=== PATIENT | male | born 1985 | race African-American/Black ===

== ENCOUNTER 2022-07-03 11:42 | Emergency (ER) | payer SELFPAY ==
--- NOTE | ~2022-07-03 | XR_ITS ---
EXAMINATION: XR FINGER, RIGHT CLINICAL INFORMATION: Crush injury COMPARISON: None TECHNIQUE: Three views of the right thumb. FINDINGS: There is deformity of the fifth metacarpal which may reflect sequelae of remote prior fracture. No acute fracture seen. The thumb is intact. Joint spaces are maintained. No radiopaque foreign body. XR/XR finger RT min 2V IMPRESSION: No acute osseous abnormality. Deformity of the fifth metacarpal may reflect sequelae of remote healed prior fracture.
[2022-07-03 12:55] VITALS: BP 139/98; PULSE 69; RESP 14; TEMP 36.9; O2SAT 99; BMI 28.1
--- NOTE | 2022-07-03 17:46 | ED.EXTPRO ---
HPI - Extremity Problem General Chief complaint: Extremity Injury, Upper Stated complaint: R Thumb Injury 07/01/22 Time Seen by Provider: 07/03/22 17:36 Source: patient Mode of arrival: ambulatory Limitations: no limitations History of Present Illness HPI Narrative: 36 yo male presents to the ER for evaluation of right thumb injury that occurred 4 days ago. He states he accidentally slammed his right thumb into a car door. He was not seen at the time of the injury. He over the weekend he developed bruising and collection of blood under the right thumbnail with increased pain and pressure. He is able to flex and extend the thumb and has pain with flexion. No other injuries. No numbness or weakness. MD Complaint: extremity pain Onset (ago): day(s) (4) Pain Consistency: constant Location: right and other (Thumb) Severity scale (1-10): 7 Quality: aching and other (Throbbing) Radiation: none Relieving factors: nothing Exacerbating factors: range of motion and palpation Associated symptoms: denies other symptoms Related Data Allergies Allergy/AdvReac Type Severity Reaction Status Date / Time No Known Allergies Allergy Unverified 05/27/20 15:41 Review of Systems Review of Systems: Constitutional: No Fever, No Chills Cardiovascular: No Chest Pain, No SOB Gastrointestinal: No Nausea, No Vomiting Musculoskeletal: + joint pain, No Myalgias Skin: No Skin Lesions, No rash Neuro: No Weakness, No Numbness Psych: + Anxiety/Panic Heme/Lymph: +Bruising, No Lymphadenopathy PMFSH Social History Social History Advance Directives: No Advance Directives Information Provided: No Physical Exam Vital Signs: Vital Signs: Last Vital Signs Temp 98.4 F 07/03/22 12:55 Pulse 69 07/03/22 12:55 Resp 14 07/03/22 12:55 BP 139/98 H 07/03/22 12:55 Pulse Ox 99 07/03/22 12:55 O2 Del Method 07/03/22 12:55 BMI result Body Mass Index 28.1 Appearance: Alert. Oriented X3. No acute distress. HEENT: normal inspection CVS: Normal heart rate and rhythm. Pulses normal. Respiratory: No respiratory distress. Skin: Skin warm and dry. Normal skin color. Normal skin turgor. No rashes. Extremities: Right thumb with diffuse darkening under the entire nail bed consistent with a subungual hematoma. There is also petechiae of the distal pulp of the thumb. Normal flexion and extension of the digit with normal thumb to finger opposition. The nail is intact. Neuro: Oriented X 3. No motor deficit. No sensory deficit. Course Course Course Narrative: 36-year-old male presents to the ER for evaluation of a right thumb injury 4 days ago. His exam is consistent with a subungual hematoma. His x-rays negative for any acute fractures. He is agreeable to drainage today in the ER. See procedure note. He tolerated well. He was given tetanus shot an NSAID for pain control. He is stable for discharge home. Procedures Nail Trephination Time out: Yes Location (finger): right and thumb Sterile prep: betadine Method of drainage: needle Procedure successful: Yes Patient tolerated procedure: No Complications Critical Care Time Critical Care Time Critical Care Time: No Discharge Plan Discharge Clinical Impression: Subungual hematoma Patient Disposition: Home, Self-Care Instructions: Subungual Hematoma (ED) Additional Instructions: Your x-ray today did not show any broken bones. The blood was drained from her thumb. The pressure and pain should feel better. Continue to ice, elevate your hand and some as needed. Take Motrin & Tylenol as needed for pain. Follow-up with your PCP as needed Stand Alone Forms: Work/School Release Interventions: LWBS Worksheet Last Done: 07/03/22 14:55
[2022-07-03] MEDS: Diphth,Pertus(ACell),Tet Adult 0.5 ML SYRINGE IM (18:22)
[2022-07-03] MEDS: Ibuprofen 600 MG TABLET PO (18:23)
== END 2022-07-03 18:25 | disposition home or self-care (01) ==
PROVIDERS: Emergency Provider Emergency Medicine
DX: S60.111A Contusion of right thumb with damage to nail, initial encounter (principal); W23.1XXA Caught, crushed, jammed, or pinched between stationary objects, initial encounter; Y93.89 Activity, other specified; Y92.810 Car as the place of occurrence of the external cause; Y99.9 Unspecified external cause status
CPT/HCPCS: 11740; 73140; 90471; 90715; 99283; 99284

== ENCOUNTER 2023-05-30 05:52 | Emergency (ER) | payer BC, SELFPAY ==
--- NOTE | ~2023-05-30 | US_ITS ---
EXAMINATION: US SCROTUM CLINICAL INFORMATION: Right testicular pain. COMPARISON: None available. TECHNIQUE: A sonogram of the scrotum was performed assessing carey-scale appearance and color Doppler flow. Spectral Doppler analysis of the arterial and venous flow were performed in the testes bilaterally. FINDINGS: RIGHT: Right testicle measures 4.3 x 2.3 x 2.5 cm, volume 13 mL. No focal testicular parenchymal lesions are visualized. Spectral Doppler analysis of the arterial and venous flow is normal in the right testis. Right epididymal head is normal in size. No right hydrocele or varicocele is seen. Right epididymal Doppler flow is normal. LEFT: Left testicle measures 4.1 x 2.0 x 2.6 cm, volume 11 mL. No focal testicular parenchymal lesions are visualized. Spectral Doppler analysis of the arterial and venous flow is normal in the left testis. Left epididymal head is normal in size. No left hydrocele or varicocele is seen. Left epididymal Doppler flow is normal. US/US scrotum doppler IMPRESSION: Symmetrically sized testicles demonstrating normal arterial and venous waveforms.
--- NOTE | ~2023-05-30 | US_ITS ---
EXAMINATION: US SCROTUM CLINICAL INFORMATION: Right testicular pain. COMPARISON: None available. TECHNIQUE: A sonogram of the scrotum was performed assessing carey-scale appearance and color Doppler flow. Spectral Doppler analysis of the arterial and venous flow were performed in the testes bilaterally. FINDINGS: RIGHT: Right testicle measures 4.3 x 2.3 x 2.5 cm, volume 13 mL. No focal testicular parenchymal lesions are visualized. Spectral Doppler analysis of the arterial and venous flow is normal in the right testis. Right epididymal head is normal in size. No right hydrocele or varicocele is seen. Right epididymal Doppler flow is normal. LEFT: Left testicle measures 4.1 x 2.0 x 2.6 cm, volume 11 mL. No focal testicular parenchymal lesions are visualized. Spectral Doppler analysis of the arterial and venous flow is normal in the left testis. Left epididymal head is normal in size. No left hydrocele or varicocele is seen. Left epididymal Doppler flow is normal. US/US scrotum IMPRESSION: Symmetrically sized testicles demonstrating normal arterial and venous waveforms.
[2023-05-30 05:57] VITALS: BP 129/84; PULSE 80; RESP 17; TEMP 36.8; O2SAT 99; BMI 27.4
--- NOTE | 2023-05-30 07:18 | ED.BACK ---
HPI - Back Pain/Injury General Chief Complaint: Back Pain/Injury Stated Complaint: back inj Time Seen by Provider: 05/30/23 07:18 Source: patient and family Mode of arrival: ambulatory Limitations: no limitations History of Present Illness HPI Narrative: 37 yo male no blood thinners, no IVDA here with R low back pain after twisting at LISA - has pain in R low back down R leg with some parasthesias but no loss of control of bowel or bladder and no saddle anesthesia. He tried heat and NSAIDs without relief. Hurts to move and raise R leg. He states he cannot tolerate the pain anymore. It does radiate down the groin at times as well but no other or GI symptoms. MD elicited complaint: back pain and back injury Pertinent past history: prior back pain Onset (ago): day(s) (6) Timing: constant Severity: moderate Similar Symptoms Previously: No Quality: sharp Location: lumbar spine Radiation: right upper leg Exacerbating factors: movement Relieving factors: immobilization Context: turning/twisting Associated symptoms: numbness (has tingling to R upper lateral and anterior thigh) Treatments prior to arrival: heat therapy and NSAIDS Work related injury: No Related Data Previous Rx's Medication Instructions Recorded diazepam 5 mg tablet (Valium) 5 mg PO TID PRN muscle spasm #10 05/30/23 tabs lidocaine 5 % topical patch 1 patch topical DAILY #30 ea 05/30/23 prednisone 20 mg tablet 40 mg (2 x 20 mg) PO DAILY 5 days 05/30/23 #10 tabs Allergies Allergy/AdvReac Type Severity Reaction Status Date / Time No Known Allergies Allergy Unverified 05/27/20 15:41 Review of Systems Review of Systems: Constitutional : No Weight loss, No Fever, No Chills, ENT/Mouth : No Hearing loss, No Ear Pain, No Nasal Congestion, No Sinus Pain, No Hoarseness, No sore throat, No Rhinorrhea, No Swallowing Difficulty Cardiovascular : No Chest Pain, No SOB Respiratory : No Cough, No Dyspnea Gastrointestinal : No Nausea, No Vomiting, No Diarrhea, No abdominal Pain, No Hematochezia, No Melena Genitourinary : No Dysuria, No Urinary Frequency, No Hematuria, No Urinary Incontinence, Musculoskeletal : positive back pain Skin : No Skin Lesions, No rash Neuro : No Weakness, No Numbness, pos Paresthesias, no loss of bowel or bladder incontinence, no saddle anesthesia All other systems reviewed and are negative PMFSH Past Medical History Attestation statement: The following information was validated with the patient. Source: old records reviewed Medical History Back pain Social History Social History Patient Tobacco Use Status: Never used Tobacco Advance Directives: No Advance Directives Information Provided: No Physical Exam Vital Signs: Vital Signs: Last Vital Signs Temp 98.2 F 05/30/23 05:57 Pulse 80 05/30/23 05:57 Resp 17 05/30/23 05:57 BP 129/84 05/30/23 05:57 Pulse Ox 99 05/30/23 05:57 O2 Del Method Room Air 05/30/23 05:57 BMI result Body Mass Index 27.4 Appearance: Alert. Oriented X3. No acute distress. Eyes: Pupils equal, round and reactive to light. ENT: Pharynx normal. Neck: Normal inspection. Neck supple. CVS: Normal heart rate and rhythm. Pulses normal. Respiratory: No respiratory distress. Breath sounds normal. Abdomen: Soft and nontender. : slight ttp to R spermatic no bulgle possible small reducible R inguinal hernia Back: ttp along R lower lumbar paraspinal area Skin: Skin warm and dry. Normal skin color. Normal skin turgor. Extremities: No lower extremity edema. No calf ttp Neuro: Oriented X 3. No motor deficit. No sensory deficit. SILT inner thigh, L5 5/5 bilaterally, 2+ DTR in patella and gus, 2+ DP/PT pulses, + R leg raise at 15 degrees, L leg normal. Pos radicular pain down R leg, feels tingling on R upper and lateral thigh. Medications Administered Discontinued Medications Generic Name Dose Route Start Last Admin Trade Name Freq PRN Reason Stop Dose Admin Diazepam 5 mg 05/30/23 07:32 05/30/23 07:55 Diazepam 2 Mg Tablet PO 05/30/23 07:33 5 mg ONCE ONE Administration Lidocaine 1 patch 05/30/23 07:32 05/30/23 07:55 Lidocaine 4 % Patch Adh..Patch TRANSDERMA 05/30/23 07:33 1 patch ONCE ONE Administration Protocol Morphine Sulfate 15 mg 05/30/23 07:32 05/30/23 07:55 Morphine Sulfate Immed Release 15 Mg Tablet PO 05/30/23 07:33 15 mg ONCE ONE Administration Medical Decision Making Medical Decision Making MDM Narrative: 37 yo male with prior low back pain but no hx of herniation presents with R low back pain and radicular symptoms down R leg - no b/b incontinence saddle anesthesia no red flags no IVDA or fevers pain is reproduceable he does have small reduceable inguinal hernia on R side which is not bulging and has no GI symptoms likely incidental I am going to obtain scrotal US just in case - PO pain medications. If normal US will DC home as disc hernation and 2 weeks or restrictions PCP and PT. Possible MRI for emergent symptoms - precautions advised. Differential Diagnosis Differential Diagnoses: The differential diagnosis associated with the presentation includes muscle spasm, hernia, lumbar strain, lumbar disc herniation Admission/Observation Consideration of admission/observation: Escalation of care including admission/observation considered can ambulate and tolerate oral pain medications no signs of CE syndrome Independent Interpretation I performed an independent interpretation of an: Ultrasound (no torsion) Radiology Impression Discussion of test interpretation with radiology: I have reviewed the radiologist's reading. Independent Historian Clinical information obtained from an independent historian. History obtained from or confirmed by: Spouse External Record Review External record reviewed: Inpatient record Tests considered The following testing was considered but not selected: MRI but given no cauda equina symptoms no indication at this time Prescription Management I considered prescription management with: Pain Medication and Other Discharge Plan Discharge Clinical Impression: Lumbar radiculopathy Patient Disposition: Home, Self-Care Instructions: Lumbar Radiculopathy (ED), Lower Back Exercises (ED) Additional Instructions: return for inability to urinate or loss of control of bowel or bladder, numbness in genital area this is an emergency. take a stool softener over the counter for pain. you can take over the counter tylenol while on prednisone but avoid motrin and ibuprofen while on the prednisone to prevent stomach upset - you can take the motrin once off prednisone. walk around and do not just sit in bed. you need to call your doctor and get into physical therapy as soon as possible. small possible inguinal hernia on right side but not the cause of your pain Prescriptions: New prednisone 20 mg tablet 40 mg PO DAILY 5 Days Qty: 10 0RF lidocaine 5 % adhesive patch,medicated 1 patch topical DAILY Qty: 30 0RF Rx Instructions: leave on most painful area for up to 12 hrs diazepam [Valium] 5 mg tablet 5 mg PO TID PRN (Reason: muscle spasm) Qty: 10 0RF Rx Instructions: partial fill is okay Stand Alone Forms: Work/School Release
[2023-05-30] MEDS: Lidocaine 4 % Patch ADH..PATCH 1 PATCH TRANSDERMA (07:55)
[2023-05-30] MEDS: Morphine Sulfate Immed Release 15 MG TABLET PO (07:55)
[2023-05-30] MEDS: diazePAM 2 MG TABLET 5 MG PO (07:55)
--- NOTE | 2023-05-30 07:58 | PC.NURSE ---
PATIENT EVALUATED BY PROVIDER. MEDICATIONS/ULTRASOUND ORDERED. PT MEDICATED ORDERED PESTICIDE CONTROL INSPECTOR CURRENTLY AT BEDSIDE FOR ULTRASOUND. PT AWARE AND AGREEABLE TO CARE PLAN
== END 2023-05-30 09:02 | disposition home or self-care (01) ==
PROVIDERS: Emergency Provider Emergency Medicine
DX: M54.16 Radiculopathy, lumbar region (principal); R10.2 Pelvic and perineal pain; N50.812 Left testicular pain; N50.811 Right testicular pain; Z79.899 Other long term (current) drug therapy
CPT/HCPCS: 76870; 93975; 99284

== ENCOUNTER 2023-06-24 01:25 | Emergency (ER) | payer BC, SELFPAY ==
[2023-06-24 01:45] VITALS: BP 124/68; PULSE 69; RESP 19; TEMP 37.7; O2SAT 97; BMI 28.1
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
[2023-06-24] MEDS: Cyclobenzaprine HCl 5 MG TABLET PO (02:44)
[2023-06-24] MEDS: Ketorolac Tromethamine 15 MG/ML VIAL IM (02:44)
[2023-06-24] MEDS: predniSONE 20 MG TABLET PO (02:44)
[2023-06-24 02:51] VITALS: BP 131/87; PULSE 69; RESP 18; O2SAT 97
== END 2023-06-24 02:53 | disposition home or self-care (01) ==
PROVIDERS: Emergency Provider Emergency Medicine Emergency Medical Services
DX: S39.012A Strain of muscle, fascia and tendon of lower back, initial encounter (principal); X58.XXXA Exposure to other specified factors, initial encounter; Y93.9 Activity, unspecified; Y92.9 Unspecified place or not applicable; Y99.9 Unspecified external cause status
CPT/HCPCS: 96372; 99283; 99284; J1885

== ENCOUNTER 2023-06-29 08:38 | Emergency (ER) | payer BC, SELFPAY ==
--- NOTE | ~2023-06-29 | MR_ITS ---
EXAMINATION: MR LUMBAR SPINE WITHOUT CONTRAST CLINICAL INFORMATION: Severe low back pain and urinary incontinence. COMPARISON: There are no prior studies available for comparison. TECHNIQUE: MRI of the lumbar spine was obtained using routine sequences without contrast. FINDINGS: VERTEBRAL BODIES AND PARASPINAL STRUCTURES: There is nonspecific straightening of the lumbar lordosis. There is mild narrowing of intervertebral disc height at L4-L5 with mild disc desiccation. Vertebral body heights are maintained, and no fractures are demonstrated. Marrow signal is homogenous. There are arthropathic changes of the sacroiliac joints. The visualized retroperitoneal and pelvic structures are unremarkable. CONUS MEDULLARIS AND CAUDA EQUINA: Normal, terminating at the level of T12-L1. The lower thoracic spinal cord appears normal. The cauda equina nerve roots and filum terminale appear normal. SPINAL LEVELS: T12-L1: The facet joints appear normal bilaterally. Disc contour is normal. There is no central stenosis or foraminal narrowing. L1-L2: The facet joints appear normal bilaterally. Disc contour is normal. There is no central stenosis or foraminal narrowing. L2-L3: The facet joints appear normal bilaterally. Disc contour is normal. There is no central stenosis or foraminal narrowing. L3-L4: There is mild bilateral facet arthropathy. The small right paracentral disc protrusion which distorts the ventral thecal sac and there is no significant mass effect or central stenosis. There is a right foraminal disc protrusion with an annular fissure impinging on the exiting right L3 nerve root. L4-L5: There is mild bilateral facet arthropathy. There is a mild diffuse disc bulge without mass effect on the thecal sac and there is no central stenosis. There is a left foraminal disc protrusion with an annular fissure impinging on the exiting left L4 nerve root. L5-S1: There is mild bilateral facet arthropathy. Disc contour is normal. There is no central stenosis or foraminal narrowing. MR/MR lumbar spine wo con IMPRESSION: 1. At L3-L4 there is a small right paracentral disc protrusion without mass effect or central stenosis. There is a right foraminal disc protrusion with an annular fissure impinging on the exiting right L3 nerve root. 2. At L4-L5 there is a mild diffuse disc bulge without mass effect on the thecal sac and there is no central stenosis. There is a left foraminal disc protrusion with an annular fissure impinging on the exiting left L4 nerve root.
[2023-06-29 08:57] VITALS: BP 142/106; RESP 19; TEMP 36.5; O2SAT 98; BMI 29.2
--- NOTE | 2023-06-29 09:35 | ED_ITS ---
HPI - Back Pain/Injury General Chief Complaint: Back Pain/Injury Stated Complaint: no feeling in r leg back pain l leg numbness Time Seen by Provider: 06/29/23 09:32 Source: patient Mode of arrival: ambulatory Limitations: no limitations History of Present Illness HPI Narrative: 37 yo male presenting for the 3rd time since 05/30/23 for evaluation of right lower back pain. He states initial injury was in May when he twisted wrong at the [employer]. He was seen here 05/30, diagnosed with lumbar strain and discharged with prednisone, valium and lidocaine patches. He states the pain slowly got better. He came back on 06/24 after re-injuring his back on the tea cup ride at [employer]. He was given additional prednisone, flexeril and naproxen with minimal relief. He states for the last 3 days he developed urinary incontinence. He states he goes the bathroom, feels like he emptied his bladder and then ends up urinating in himself when he is walking away from the bathroom. This happened several times. He also developed worsening numbness and tingling in the posterior and anterior thigh, along with the right inguinal area. No bowel incontinence but he is having a hard time sitting to have a BM. He is able to walk but has to do so very slowly. MD elicited complaint: back pain and back injury Pertinent past history: prior back pain and recent trauma Onset (ago): week(s) Timing: constant and progressively worsening Severity: severe Similar Symptoms Previously: Yes Quality: sharp, stabbing and tingling Location: right lower back Radiation: groin, buttocks, right upper leg and right leg below the knee Exacerbating factors: movement, sitting upright and walking Relieving factors: other (laying prone) Context: turning/twisting Associated symptoms: difficulty walking, loss of sensation in lower extremities and urinary incontinence Treatments prior to arrival: NSAIDS and other medications Work related injury: No Related Data Previous Rx's Medication Instructions Recorded diazepam 5 mg tablet (Valium) 5 mg PO TID PRN muscle spasm #10 05/30/23 tabs lidocaine 5 % topical patch 1 patch topical DAILY #30 ea 05/30/23 prednisone 20 mg tablet 40 mg (2 x 20 mg) PO DAILY 5 days 05/30/23 #10 tabs cyclobenzaprine 5 mg tablet 5 mg PO TID PRN muscle spasm 7 06/24/23 days #21 tabs naproxen 500 mg tablet 500 mg PO BID 7 days #14 tabs 06/24/23 prednisone 20 mg tablet 20 mg PO DAILY 7 days #7 tabs 06/24/23 oxycodone 10 mg tablet 10 mg PO Q6H PRN severe pain 06/29/23 (scale score 7-10) #12 tabs Allergies Allergy/AdvReac Type Severity Reaction Status Date / Time No Known Allergies Allergy Verified 06/29/23 08:57 Review of Systems Review of Systems: Yes all other systems are reviewed and are negative [facility] Past Medical History Medical History Back pain Social History Social History Patient Tobacco Use Status: Never used Tobacco Smoked in Last 30 Days: No Use of substances other than those prescribed or required for medical reasons: Yes Substance Use Type: Marijuana Advance Directives: No Advance Directives Information Provided: Yes Physical Exam Vital Signs: Vital Signs: Last Vital Signs Temp 98.5 F 06/29/23 12:58 Pulse 74 06/29/23 12:58 Resp 18 06/29/23 12:58 BP 122/76 06/29/23 12:58 Pulse Ox 97 06/29/23 12:58 O2 Del Method Room Air 06/29/23 12:58 BMI result Body Mass Index 29.2 Appearance: Alert. Oriented X3. No acute distress. Head: normocephalic, atraumatic. Eyes: Pupils equal, round and reactive to light. ENT: Pharynx normal. No tonsillar swelling or exudate. Neck: Normal inspection. Neck supple. CVS: Normal heart rate and rhythm. Pulses normal. Respiratory: No respiratory distress. Breath sounds normal. Back: normal inspection, right lower lumbar and SI joint tenderness. Skin: Skin warm and dry. Normal skin color. Normal skin turgor. No rashes. Extremities: No lower extremity edema. No joint swelling. Neuro/psych: Oriented X 3. +sensory deficit of posterior thigh and calf. normal ROM. Ambulated into treatment room slowly. Medications Administered Discontinued Medications Generic Name Dose Route Start Last Admin Trade Name Freq PRN Reason Stop Dose Admin Oxycodone HCl 10 mg 06/29/23 09:41 06/29/23 09:46 Oxycodone Hcl Immed Release 5 Mg Tablet PO 06/29/23 09:42 10 mg ONCE ONE Administration Oxycodone HCl 10 mg 06/29/23 12:54 06/29/23 12:59 Oxycodone Hcl Immed Release 5 Mg Tablet PO 06/29/23 12:55 10 mg ONCE ONE Administration Medical Decision Making Medical Decision Making MDM Narrative: 37 yo male with recent lumbar strain and radiculopathy presenting with new urinary incontinence x3 days. difficult to examine given pain. he is most comfortable prone. he is ambulatory given symptoms, case d/w Dr. Casas - recommended MRI 2 doses of oxycodone given to tolerate MRI MRI showing mild disc protrusion and L4 nerve root compression. no central canal stenosis pain improved after meds we discussed results and possible admission for pain control. he decline and would like to go home. will refer to member service specialist here, he needs PCP. return precautions discussed. stable for d/c home Differential Diagnosis Differential Diagnoses: The differential diagnosis associated with the presentation includes cauda equina syndrome, lumbar radiculopathy, malignancy, trauma, osteoporosis, nerve root compression, plexopathy, degenerative disc disease, disc herniation, spinal stenosis, sacroiliac joint dysfunction, facet joint injury, and less likely infection?like abscess or diskitis Admission/Observation Consideration of admission/observation: Escalation of care including admission/observation considered required multiple pain meds - decined admit Independent Interpretation Interpretation: MRI reviewed - no central canal stenosis appreciated, agree w/ radiology read Radiology Impression Discussion of test interpretation with radiology: I have reviewed the radiologist's reading. Radiologist Impression: MR/MR lumbar spine wo con IMPRESSION: 1. At L3-L4 there is a small right paracentral disc protrusion without mass effect or central stenosis. There is a right foraminal disc protrusion with an annular fissure impinging on the exiting right L3 nerve root. 2. At L4-L5 there is a mild diffuse disc bulge without mass effect on the thecal sac and there is no central stenosis. There is a left foraminal disc protrusion with an annular fissure impinging on the exiting left L4 nerve root. Independent Historian Clinical information obtained from an independent historian. History obtained from or confirmed by: Spouse External Record Review External record reviewed: Outpatient record, Prior outpatient labs and Prior outpatient radiology Prescription Management I considered prescription management with: Pain Medication Critical Care Time Critical Care Time Critical Care Time: Yes Total Critical Care Time: 31 Attestation: I have personally provided critical care time exclusive of time spent on separately billable procedures. Time includes review of radiology results, frequent bedside assessments of pain and cardiopulmonary status requiring multiple doses of narcotic medications for pain control, and monitoring for potential decompensation. Intervention performed as documented. Discharge Plan Discharge Clinical Impression: Lumbar radiculopathy, Lumbar disc herniation Patient Disposition: Home, Self-Care Instructions: Lumbar Disc Herniation (ED), Lumbar Radiculopathy (ED) Additional Instructions: Take the prescribed narcotic pain medication as needed for severe pain only. Do not drive after taking this medication Finish your prednisone as previously prescribed Recommend Tylenol 975 mv every 6 hours around the clock Recommend Aleve 500 mg every 12 hours, take with food Follow up with the [facility] Call your insurance company and see who is accepting new patients. If you develop new or worsening symptoms call 911 or come back to the ER for further evaluation. MR/MR lumbar spine wo con IMPRESSION: 1. At L3-L4 there is a small right paracentral disc protrusion without mass effect or central stenosis. There is a right foraminal disc protrusion with an annular fissure impinging on the exiting right L3 nerve root. 2. At L4-L5 there is a mild diffuse disc bulge without mass effect on the thecal sac and there is no central stenosis. There is a left foraminal disc protrusion with an annular fissure impinging on the exiting left L4 nerve root. Prescriptions: New oxycodone 10 mg tablet 10 mg PO Q6H PRN (Reason: severe pain (scale score 7-10)) Qty: 12 0RF Rx Instructions: Partial Fill upon patient request. No Action prednisone 20 mg tablet 40 mg PO DAILY 5 Days Qty: 10 0RF lidocaine 5 % adhesive patch,medicated 1 patch topical DAILY Qty: 30 0RF Rx Instructions: leave on most painful area for up to 12 hrs diazepam [Valium] 5 mg tablet 5 mg PO TID PRN (Reason: muscle spasm) Qty: 10 0RF Rx Instructions: partial fill is okay prednisone 20 mg tablet 20 mg PO DAILY 7 Days Qty: 7 0RF naproxen 500 mg tablet 500 mg PO BID 7 Days Qty: 14 0RF cyclobenzaprine 5 mg tablet 5 mg PO TID PRN (Reason: muscle spasm) 7 Days Qty: 21 0RF Referrals: [facility] [Provider Group] [facility]] [facility] [Provider Group] Wilman King MD, PhD [Physician] - Stand Alone Forms: Work/School Release
[2023-06-29] MEDS: oxyCODONE HCl Immed Release 5 MG TABLET 10 MG PO ×2 (09:46→12:59)
--- NOTE | 2023-06-29 09:50 | PC.NURSE ---
a&ox3, vss and up to date at this time. pt comes in today d/t 9/10 lower back pain that started last week. pt states that he was at [employer] w/ his daughter when he was on a ride and twisted/turned funny. pain has been present ever since. pt also c/o right leg numbness/tingling sensation at this time. pt medicated per provider order. will reassess pain level shortly. pt laying flat on abdomen to promote comfort at this tie. respirations even and unlabored. partner bedside for support. call grace placed within reach.
--- NOTE | 2023-06-29 11:00 | PC.NURSE ---
MRI screening form filled out at this time. faxed over. placed in pt's chart.
--- NOTE | 2023-06-29 11:40 | PC.NURSE ---
pt currently off unit. MRI came to transfer pt to have imaging done at this time. will reassess when pt returns.
--- NOTE | 2023-06-29 12:45 | PC.NURSE ---
pt returned from MRI screening. pt requesting another dose of pain medication at this time. will notify provider.
[2023-06-29 12:58] VITALS: BP 122/76; PULSE 74; RESP 18; TEMP 36.9; O2SAT 97
--- NOTE | 2023-06-29 13:04 | PC.NURSE ---
medication administered per provider order. will reassess pain level shortly. pt repositioned to comfort. partner bedside for support. call grace placed within reach.
== END 2023-06-29 13:53 | disposition home or self-care (01) ==
PROVIDERS: Emergency Provider Emergency Medicine
DX: M51.16 Intervertebral disc disorders with radiculopathy, lumbar region (principal); R32 Unspecified urinary incontinence
CPT/HCPCS: 72148; 99284; 99285

== ENCOUNTER 2023-07-11 10:57 | Outpatient (AMB) | payer BC, SELFPAY ==
--- NOTE | 2023-07-11 11:28 | A.SPINEOV_ITS ---
Intake Intake Visit Reasons: ED follow up Intake Note: Mr. Avery is here today c/o Right-sided low back pain radiating into thigh. MRI done @ [facility] [place] [facility] Required: No Allergies No Known Allergies Allergy (Verified 06/29/23 08:57) Assessment & Plan Assessment & Plan (1) Alterations of sensations: Comment: Of right thigh and groin Code(s): R20.9 - Unspecified disturbances of skin sensation (2) Lumbago: Code(s): M54.50 - Low back pain, unspecified Plan Dear colleague, Thank you for referring Jose M to our office today. Jose M is a pleasant 37-year-old male comes in today with a chief complaint of 2 months of low back pain with radiation into his right thigh. He reports that his initial injury occurred after he went to the [employer] and was turning/reaching to grab money. He felt a sharp pain in his low back which persisted for 3-4 weeks. He was seen in the ED, provided with pain medication and muscle relaxers, and states that this began to improve. Then 4 weeks ago he was on the tea cup ride at [employer] and as the ride jerked his body he felt another short pain begin his low back with radiation into his right thigh. After dealing with this for a couple of weeks he began to report significant sensation changes including severe pain to even light touch of his right thigh/groin. He also reports urinary incontinence and an inability to fully void. After being seen in the emergency department 2 weeks ago he was referred to our office for evaluation. He has tried stretching, exercise, Tylenol, naproxen, ice, heat, rest all without alleviation of symptoms. No progression of sensation changes or incontinence since onset. PMH: None reported. Social hx: Patient smokes 1/2 ppd. Reports no substance use. Medications: cyclobenzaprine, Valium, oxycodone, prednisone, naproxen. Allergies: NKDA. Physical exam: Bennie has 5/5 strength in his upper and lower extremities. Reported decreased sensation over proximal right anterior/lateral thigh. Sensation grossly intact elsewhere. Patient is able to ambulate well without difficulty. He can rise from a seated position easily. (-) Bilateral straight leg raise, (-) Arndt's, (-) clonus. Imaging review: MRI completed at [facility] shows no significant neurological impingement, no significant stenosis, no significant disc bulge, central canal is patent and open. Impression: Bennie is a 37-year-old male who comes in today after 2 months of back pain with newer onset radiation into his right thigh roughly 4 weeks ago secondary to riding the teacup ride at [employer]. Of note he complains of inability to completely void, and some urinary incontinence. Also complains of significant sensation changes of R thigh. His MRI does not show evidence of any neurological complications that would warrant surgery. I recommend that he be referred for physical therapy, and be referred to Pain Management for further evaluation and potential workup / treatment. We will also place a referral for Neurology. He has no saddle anesthesia and no fecal incontinence / progression of symptoms. Given his MRI results is a very low risk for progressive neurological deficits. Dr. King also reviewed the MRI films and is in agreement with this plan. Thank you for allowing us to care for your patient. The total time spent with this visit with this patient was 45 minutes reviewing history, physical exam, MRI imaging review, referral placement, and implementation of treatment plan or further diagnostic testing Nas King MD,PhD [facility] Orders: Referrals Neurology Referral R20.9 - Unspecified disturbances of skin sensation Pain Management Referral M54.50 - Low back pain, unspecified Coding Level of Care Code New Pt Level 4 (91298) Diagnoses Alterations of sensations R20.9 Lumbago M54.50
== END 2023-07-11 12:54 | disposition home or self-care (01) ==
PROVIDERS: Visit Provider Physician Assistant
DX: R20.9 Unspecified disturbances of skin sensation (principal); M54.50 Low back pain, unspecified
CPT/HCPCS: 99204

== ENCOUNTER → 2023-07-11 10:57 | Outpatient (BNVA) | payer BC, SELFPAY | PROVIDERS: Visit Provider Physician Assistant ==

== ENCOUNTER 2023-07-18 08:58 | Outpatient (AMB) | payer BC, SELFPAY ==
--- NOTE | 2023-07-18 09:08 | MHC.OFFVIS ---
Intake Vital Signs 07/18/23 09:11 Height 5 ft 8 in Weight 186 lb BMI 28.3 BP 134/82 Blood Pressure Location Lt brachial Position Sitting Respiration 16 Pulse 76 Pulse Source Pulse Oximeter Pulse Oximetry (%) 100 Oxygen Delivery Method Room Air Intake Visit Reasons: Persistent R sided low back pain / thigh pain Allergies No Known Allergies Allergy (Verified 07/18/23 09:05) HPI HPI Comments History of Present Illness Details Jose M is a very pleasant 37 year old male who presents to the office today for evaluation and management of his subacute right lower back pain and right thigh pain. Patient reports that 2 months ago he injured his lower back while twisting, the injury was improving until 1 month ago when he went on a ride at [employer] and reinjured. He endorses right lower back pain that radiates into the right thigh. Pain in the right thigh is the most bothersome, he describes this as burning, tearing pain. Right thigh is sensative to touch, he states at night he has to sleep with his leg out of the covers because he is not able to tolerate even light touch. Patient was evaluated by Neurosurgery at and referred here for treatment. Patient reports that after the injury he was experiencing some incomplete emptying of the bladder followed by urinary incontinence. He states that this is no longer an issue and has not happened in a couple weeks. He denies red flag symptoms including new loss of bowel, bladder or saddle anesthesia. Patient has been taking anti-inflammatory medication and muscle relaxers for the pain. He states the Advil helps his pain. He is no longer taking muscle relaxers but they did provide him benefit of sleep though they did not help with the burning pain to his thigh. Patient states he is on a waiting list for physical therapy. He has never tried injections for his back. MRI reviewed with patient today, results as per below. In terms of muscle damage condition is described as burning, numb, stabbing, pins and needles. Pain is negatively impacting patient's sleep, daily activities, normal function, mood and work. FORMERLY [facility], [facility] Medical History (Updated 07/18/23 @ 12:48 by Ayana Brantley APRN, PACKING LINE OPERATOR) Back pain Social History Patient Tobacco Use Status: Never used Tobacco Substance Use Type: Marijuana Review of Systems Const All systems reviewed & are unremarkable except as noted in HPI and below Physical Exam Vital Signs: Last Vital Signs Pulse 76 07/18/23 09:11 Resp 16 07/18/23 09:11 BP 134/82 07/18/23 09:11 Pulse Ox 100 07/18/23 09:11 Oxygen Delivery Method Room Air 07/18/23 09:11 BMI result Body Mass Index 28.3 General: awake, alert, oriented. Answers questions appropriately. Fully engaged in examination. Skin: warm, dry, intact HEENT: Normocephalic. Hearing intact. Cardiac: External chest normal in appearance. Respiratory: No cough, audible wheezing or stridor. Abdomen: without gross distension. MS: No obvious swelling or deformities. Able to stand on bilateral tiptoes and bilateral heels.? Able to transition from sit to stand unassisted. Ambulates with bilaterally normal heel strike and toe off Bilateral lower extremity strength 5/5 SLR with and without dorsiflexion positive on the right flexion to 70 degrees, extension to 10 degrees. Pain worse with extension tenderness to palpation right thigh, midline lumbar vertebrae and lumbar paraspinal muscles Neurological: Oriented to person, place, time and situation. Thought process intact. No gait abnormalities appreciated. Psychiatric: Appropriate mood and affect. Good judgment and insight. Results Reviewed Results Reviewed: 06/29/23 MR/MR lumbar spine wo con MRI of the lumbar spine was obtained using routine sequences without contrast. FINDINGS: VERTEBRAL BODIES AND PARASPINAL STRUCTURES: There is nonspecific straightening of the lumbar lordosis. There is mild narrowing of intervertebral disc height at L4-L5 with mild disc desiccation. Vertebral body heights are maintained, and no fractures are demonstrated. Marrow signal is homogenous. There are arthropathic changes of the sacroiliac joints. The visualized retroperitoneal and pelvic structures are unremarkable. CONUS MEDULLARIS AND CAUDA EQUINA: Normal, terminating at the level of T12-L1. The lower thoracic spinal cord appears normal. The cauda equina nerve roots and filum terminale appear normal. SPINAL LEVELS: T12-L1: The facet joints appear normal bilaterally. Disc contour is normal. There is no central stenosis or foraminal narrowing. L1-L2: The facet joints appear normal bilaterally. Disc contour is normal. There is no central stenosis or foraminal narrowing. L2-L3: The facet joints appear normal bilaterally. Disc contour is normal. There is no central stenosis or foraminal narrowing. L3-L4: There is mild bilateral facet arthropathy. The small right paracentral disc protrusion which distorts the ventral thecal sac and there is no significant mass effect or central stenosis. There is a right foraminal disc protrusion with an annular fissure impinging on the exiting right L3 nerve root. L4-L5: There is mild bilateral facet arthropathy. There is a mild diffuse disc bulge without mass effect on the thecal sac and there is no central stenosis. There is a left foraminal disc protrusion with an annular fissure impinging on the exiting left L4 nerve root. L5-S1: There is mild bilateral facet arthropathy. Disc contour is normal. There is no central stenosis or foraminal narrowing. IMPRESSION: 1. At L3-L4 there is a small right paracentral disc protrusion without mass effect or central stenosis. There is a right foraminal disc protrusion with an annular fissure impinging on the exiting right L3 nerve root. 2. At L4-L5 there is a mild diffuse disc bulge without mass effect on the thecal sac and there is no central stenosis. There is a left foraminal disc protrusion with an annular fissure impinging on the exiting left L4 nerve root. Assessment & Plan Assessment & Plan (1) Alterations of sensations: Comment: Of right thigh and groin Code(s): R20.9 - Unspecified disturbances of skin sensation (2) Neuritis: Code(s): M79.2 - Neuralgia and neuritis, unspecified Plan Jose M is a very pleasant 37-year-old male who presented to the office today for evaluation and management of his right lower back and right thigh pain. Patient recently evaluated by Neurosurgery, deemed nonsurgical and referred here for evaluation /management. History, physical exam and provocative testing consistent with lumbar radiculopathy and painful paresthesia of the right thigh, subacute. order placed for PT eval and treat given patient's reported burning pain consistent with neuritis, will trial gabapentin 100 mg t.i.d. Discussed options for treatment including diagnostic interventional testing, epidural steroid injections, peripheral nerve stimulation with Sprint, RFA and more permanent neuromodulation. If patient does not find relief with Motrin, gabapentin and physical therapy will plan for L3-4 transforaminal epidural steroid injection, fluoroscopy guided, with local anesthetic. all questions and concerns were answered during the visit, patient agrees to the plan. Follow-up in the office after 6-8 sessions of physical therapy. Medications: New ibuprofen 600 mg PO TID 60 tabs 0RF gabapentin 100 mg PO TID 14 days 42 caps 0RF Coding Level of Care Code New Pt Level 4 (95598) Diagnoses Alterations of sensations R20.9 Neuritis M79.2
[2023-07-18 09:11] VITALS: BP 134/82; PULSE 76; RESP 16; O2SAT 100; BMI 28.3
== END 2023-07-18 09:50 | disposition home or self-care (01) ==
PROVIDERS: Visit Provider Registered Nurse Emergency
DX: R20.9 Unspecified disturbances of skin sensation (principal); M79.2 Neuralgia and neuritis, unspecified
CPT/HCPCS: 99204; 99214

== ENCOUNTER → 2023-07-18 08:58 | Outpatient (BNVA) | payer BC, SELFPAY | PROVIDERS: Visit Provider Registered Nurse Emergency ==

== ENCOUNTER 2023-08-31 10:00 | Outpatient (RCR) | payer BC, SELFPAY ==
--- NOTE | 2023-08-24 16:06 | MHC.PT.EP ---
[facility] [place] Office [place] Office [place] Office [address] [phone] F: [phone] F: [phone] F: [phone] F: [phone] Physical Therapy Plan of Care Date of Evaluation: 08/24/23 Date of Surgery: NA Diagnosis: LBP, NEURALGIA. R LBP WITH RADIATION R THIGH. TWISTING INJURY 2 MONTHS AGO WITH REPEAT INJURY 1 MONTH AGO P Assessment: Pt IS 37 YO M REFERRED TO PT FROM [facility] NP WITH LBP/R LE PARESTHESIA FROM TWISTING AT [employer] [address] THROUGH THEN 1 WEEK LATER ON TEACUPS AT [employer]. PRESENTS TODAY WITH LESS BACK PAIN OVERALL BUT CONTINUED R THIGH SXS (SUPERFICIAL NERVE ENDING HYPERSENSITIVITY). GOOD OVERALL TRUNK FLEXIBILITY AND CORE STRENGTH. SHOULD BENEFIT FROM PT 1X/WK FOR WILVER EXTENSION PROGRAM, REV OF BODY MECH AND CORE WORK Frequency and Duration: The patient will be seen 1X/WK X 4 WKS Short Term Goals: 1. INCREASED AWARENESS OF POSTURE AND BACK CARE 2. LESS FREQUENCY OF R THIGH SXS 3. Pt TO PERF 2-3 TASKS WITH PROPER BODY MECH Family Assistant Goals: 1. I HEP WITH DC EX PLAN Treatment Plan: Modalities to reduce pain, spasms and effusion. Manual therapy to restore motion and function. Therapeutic exercise to improve strength and flexibility. Neuromuscular re-education for posture and balance. Therapeutic activities to return to functional activities of daily living. Electronically signed by: PK HILLMAN PT Please sign and return to therapist. Thank you for your referral.
== END 2023-09-07 09:26 | disposition home or self-care (01) ==
LOC: HO.PT 10:00
PROVIDERS: Visit Provider Registered Nurse Emergency
DX: M54.50 Low back pain, unspecified (principal)
CPT/HCPCS: 97110; 97161

== ENCOUNTER 2023-09-06 09:29 | Outpatient (AMB) | payer BC, SELFPAY ==
--- NOTE | 2023-09-06 09:42 | A.OFFVIS_ITS ---
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 Pt reports right thigh tingling sensation, it started after back injury. He had two back injuries in May and June. He states the initial back injury was in May when he twisted wrong at the [employer]. He was diagnosed with lumbar strain and discharged with prednisone, valium and lidocaine patches. He had the second back injury on 06/24, on the tea cup ride at [employer]. He was given additional prednisone, flexeril and naproxen with minimal relief. He saw spine clinic, and pain management. Back does not feel hurts anymore, just in the middle tight and tingling sensation. Pt had constant tingling with some burning pain. He could not wear pants or use blanket on his right thigh at that time. Since Thanksgiving the symptoms has been improved, still has constant tingling but not intense now. He tried gabapentin, it helped when he had severe pain, but not really for the constant tingling. FORMERLY [facility] Medical History (Updated 09/06/23 @ 18:56 by Filomena Paulson CNP) Back pain Social History Patient Tobacco Use Status: Never used Tobacco Substance Use Type: Marijuana Review of Systems Const All systems reviewed & are unremarkable except as noted in HPI and below Physical Exam Vital Signs: Last Vital Signs Pulse 85 09/06/23 09:43 BP 148/110 H 09/06/23 09:43 Pulse Ox 98 09/06/23 09:43 Oxygen Delivery Method Room Air 09/06/23 09:43 BMI result Body Mass Index 29.4 Const General: cooperative and healthy appearing Nutritional Appearance: well nourished Orientation/consciousness: patient oriented x3 Neck Neck: Yes full ROM and Yes supple Resp Effort & Inspection: normal respiratory effort and able to speak in complete sentences Neuro General: patient oriented x3, gait normal and moves all extremities Cranial nerves: Yes CN's II-XII intact bilaterally Cognition (Neuro): normal cognition Gait exam (Neuro): Normal gait present Motor exam (neuro): 5/5 motor strength present throughout, Pronator motor function not present and no tremor noted Psych Appearance: grossly normal Mental Status: mental status grossly normal Speech and movement: Normal speech and movement present Affect: normal affect Attitude: cooperative Assessment & Plan Assessment & Plan (1) Meralgia paresthetica of right side: Code(s): G57.11 - Meralgia paresthetica, right lower limb Plan Advised patient to wearing loose pants. Continue to use gabapentin 100 mg as needed. May try Nirvive supplement. Will consider EMG if the tingling feeling is not improved. Coding Level of Care Code New Pt Level 3 (77576) Diagnoses Meralgia paresthetica of right side G57.11
[2023-09-06 09:43] VITALS: BP 148/110; PULSE 85; O2SAT 98; BMI 29.4
== END 2023-09-06 10:36 | disposition home or self-care (01) ==
PROVIDERS: Visit Provider Nurse Practitioner Family
DX: G57.11 Meralgia paresthetica, right lower limb (principal)
CPT/HCPCS: 99203

== ENCOUNTER → 2023-09-06 09:29 | Outpatient (BNVA) | payer BC, SELFPAY | PROVIDERS: Visit Provider Nurse Practitioner Family ==